=== PATIENT | female | born 1980 | race Caucasian/White ===

== ENCOUNTER 2017-03-13 00:16 | Day surgery (SDC) | payer SELFPAY ==
[2017-03-13] MEDS ORDERED: NORMAL SALINE 1000 ML 1,000 ML IV ONE ×2 (01:13)
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
[2017-03-13 01:38] LABS: PROTHROMBIN TIME 13.6 SEC (11.4-15.4)
[2017-03-13 01:39] LABS: PARTIAL THROMBOPLASTIN TIME 26.3 SEC (23.5-35.8)
[2017-03-13 01:40] LABS: ALANINE AMINOTRANSFERASE 41 U/L (9-52); ALBUMIN 4.3 g/dL (3.5-5.0); ALCOHOL 84 mg/dL (NONE DETECTED); ALKALINE PHOSPHATASE 80 U/L (38-126); ANION GAP 15 (5-19); ASPARTATE AMINO TRANSFERASE 34 U/L (14-36); BILIRUBIN,DIRECT 0.5 mg/dL (0.0-0.4); BILIRUBIN,TOTAL 0.7 mg/dL (0.2-1.3); BLOOD UREA NITROGEN 6 mg/dL (7-20); CALCIUM 9.5 mg/dL (8.4-10.2); CARBON DIOXIDE 23 mmol/L (22-30); CHLORIDE 102 mmol/L (98-107); CREATININE RESULT 0.56 mg/dL (0.52-1.25); GLUCOSE 124 mg/dL (75-110); POTASSIUM 4.5 mmol/L (3.6-5.0); SODIUM 140.3 mmol/L (137-145)
[2017-03-13 01:49] LABS: HEMATOCRIT 46.1 % (36.0-47.0); HEMOGLOBIN 15.7 g/dL (12.0-15.5); MEAN CORPUSCULAR HEMOGLOBIN 32.5 pg (27.0-33.4); MEAN CORPUSCULAR HGB CONC 34.1 g/dL (32.0-36.0); MEAN CORPUSCULAR VOLUME 95 fl (80-97); RED BLOOD COUNT 4.84 10^6/uL (3.72-5.28); RED CELL DISTRIBUTION WIDTH 13.5 % (11.5-14.0); WHITE BLOOD COUNT 20.3 10^3/uL (4.0-10.5)
[2017-03-13 01:52] LABS: BAND NEUTROPHILS % (MANUAL) 1 % (3-5); BASOPHILS % (MANUAL) 1 % (0-2); EOSINOPHILS % (MANUAL) 0 % (0-6); LYMPHOCYTES % (MANUAL) 8 % (13-45); TOTAL CELLS COUNTED 100
[2017-03-13 01:54] LABS: RBC MORPHOLOGY COMMENT NORMO-CYTIC/CHROMIC; TOXIC GRANULATION 1+; TOXIC VACUOLATION PRESENT
[2017-03-13] MEDS ORDERED: HYDROMORPHONE HCL INJ/PF 2 MG/ML AMPULE ONE (02:52)
[2017-03-13] MEDS ORDERED: PROPOFOL INJ 200 MG/20 ML VIAL IV ONE (02:53)
[2017-03-13] MEDS ORDERED: MIDAZOLAM 2 MG/2 ML INJ ONE (02:53)
[2017-03-13] MEDS ORDERED: FENTANYL CITRATE INJ/PF 100 MCG/2 ML AMPUL ONE (02:53)
[2017-03-13] MEDS ORDERED: ACETAMINOPHEN 100 ML IV ONE (02:53)
[2017-03-13] MEDS ORDERED: CEFAZOLIN INJ 1 GM VIAL ONE (03:10)
[2017-03-13] MEDS ORDERED: DIPHENHYDRAMINE HCL 50 MG/ML VIAL IV PRN (03:55)
[2017-03-13] MEDS ORDERED: PROMETHAZINE HCL INJ 25 MG/1 ML VIAL IV PRN (03:55)
[2017-03-13] MEDS ORDERED: FENTANYL CITRATE INJ/PF 100 MCG/2 ML AMPUL IV PRN ×3 (03:55)
[2017-03-13] MEDS ORDERED: OXYCODONE-ACETAMINOPHEN 5-325 MG TABLET PO PRN ×2 (03:55)
[2017-03-13 05:41] VITALS: BP 118/59
[2017-03-13] MEDS ORDERED: MORPHINE SULFATE 10 MG/ML INJ IV PRN (06:31)
[2017-03-13] MEDS ORDERED: ONDANSETRON HCL INJ/PF 4 MG/2 ML SDV IV PRN (06:32)
--- NOTE | 2017-03-13 08:28 | EKG REPORT ---
SEVERITY:- NORMAL ECG - SINUS RHYTHM : Confirmed by: Franklin Adam MD 13-Mar-2017 08:27:28
[2017-03-13] MEDS ORDERED: DEXAMETHASONE SOD PHOSPHATE INJ 4 MG/1 ML VIAL ONE (10:42)
[2017-03-13] MEDS ORDERED: LIDOCAINE 2% INJ-PF (20 MG/ML) 10 ML AMPUL ONE (10:42)
[2017-03-13] MEDS ORDERED: ONDANSETRON HCL INJ/PF 4 MG/2 ML SDV ONE (10:42)
[2017-03-13] MEDS ORDERED: SUCCINYLCHOLINE CHLORIDE INJ 200 MG/10 ML VIAL ONE (10:42)
--- NOTE | 2017-04-20 10:33 | OPERATIVE REPORT E ---
Operative Report NAME: FELISHA BURK : 1980 AGE: 36Y DATE OF SURGERY: ROOM: 212 PREOPERATIVE DIAGNOSIS: Vaginal laceration. POSTOPERATIVE DIAGNOSIS: Vaginal laceration. OPERATION: 1. Exam under anesthesia. 2. Repair of vaginal laceration. SURGEON: Kevin Ko D.O. COSMETICS DEMONSTRATOR: None. ANESTHESIA: General endotracheal anesthesia. COMPLICATIONS: None. PATHOLOGY: None. ESTIMATED BLOOD LOSS: 50 mL. FINDINGS: Left vaginal sidewall laceration extending approximately 4 cm into the vaginal vault to a depth of approximately 2 cm. PROCEDURE: The patient was taken to the operating room where she was placed in the dorsal supine position upon the operating room table. She was then administered her general endotracheal anesthesia. Once this was completed, she was placed in the dorsal lithotomy position with Doe stirrups. She was then prepped and draped in the normal sterile fashion. An exam under anesthesia was performed which revealed the left vaginal sidewall laceration that extended approximately 4 cm in the vaginal vault with a depth of approximately 2 cm. This was repaired with multiple sutures of 1-0 Vicryl. Following this the laceration was repaired, and there was excellent hemostasis noted. At this point in time the procedure was terminated. All sponge, lap, and needle counts were correct x2. The patient tolerated the procedure well. The patient was taken to the recovery room in stable condition. DICTATING PHYSICIAN: Kevin Ko DO [id number] PHY#: [id number] ID: [id number] JOB#: [id number] ACCT: [id number] cc:Kevin Ko D.O. >
== END 2017-03-13 06:15 | disposition home or self-care (01) ==
LOC: ER 00:16 → OROUT 00:17 → 2S 02:40 → ER 02:40 → 2S 02:46 → 2N 04:53 → 2S 04:53 → 2N 04:53 → OROUT 06:15 → ER 06:15
PROVIDERS: ATTEND Obstetrics & Gynecology
PROC: 0UQGXZZ Repair Vagina, External Approach (ICD-10-PCS; principal; 2017-03-13 03:30)
DX: S31.41XA Laceration without foreign body of vagina and vulva, initial encounter (principal); I95.9 Hypotension, unspecified; F17.200 Nicotine dependence, unspecified, uncomplicated; X58.XXXA Exposure to other specified factors, initial encounter; Y92.009 Unspecified place in unspecified non-institutional (private) residence as the place of occurrence of the external cause
CPT/HCPCS: 93005; 99291; 96360; 86900; 86901; 36415; 86850; 80307; 84703; 85025; 85610; 85730; 80053; 93010; 57210; J0690; J1100; J3010; J1170; J0330; J2405; J7030; J2704; J3490; J0131; 940; J2250

== ENCOUNTER 2017-05-29 16:22 | Emergency (ER) | payer SELFPAY ==
[2017-05-29] MEDS ORDERED: ACETAMINOPHEN 325 MG TABLET PO ONE (16:31)
[2017-05-29] MEDS ORDERED: OXYCODONE HCL IR 5 MG TABLET PO ONE (16:55)
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
--- NOTE | 2017-05-29 18:38 | RADIOLOGY REPORT (SQ) ---
EXAM DESCRIPTION: WRIST RIGHT 3 VIEWS COMPLETED DATE/TIME: 05/29/2017 5:32 pm REASON FOR STUDY: fall, swelling and pain over 5th metacarpal COMPARISON: None. NUMBER OF VIEWS: Three views. TECHNIQUE: AP, lateral, and oblique radiographic images acquired of the right wrist. LIMITATIONS: None. FINDINGS: MINERALIZATION: Normal. BONES: No acute fracture or dislocation. No worrisome bone lesions. Normal alignment. SOFT TISSUES: No soft tissue swelling. No foreign body. OTHER: No other significant finding. IMPRESSION: NEGATIVE STUDY OF THE RIGHT WRIST. NO RADIOGRAPHIC EVIDENCE OF ACUTE INJURY. TECHNICAL DOCUMENTATION: JOB ID: [id number] [employer]- All Rights Reserved
--- NOTE | 2017-05-29 18:38 | RADIOLOGY REPORT (SQ) ---
EXAM DESCRIPTION: ELBOW BILATERAL 2 VIEWS MIN COMPLETED DATE/TIME: 05/29/2017 5:32 pm REASON FOR STUDY: fall, swelling and pain. R with radial head tender COMPARISON: None. NUMBER OF VIEWS: Four views. TECHNIQUE: AP, lateral, and both oblique radiographic images acquired of the right elbow. LIMITATIONS: None. FINDINGS: MINERALIZATION: Normal. BONES: No acute fracture or dislocation. No worrisome bone lesions. JOINT: No effusion. SOFT TISSUES: No soft tissue swelling. No foreign body. OTHER: No other significant finding. IMPRESSION: NEGATIVE STUDY OF THE RIGHT ELBOW. NO RADIOGRAPHIC EVIDENCE OF ACUTE INJURY. TECHNICAL DOCUMENTATION: JOB ID: [id number] [employer]- All Rights Reserved
--- NOTE | 2017-05-29 18:40 | RADIOLOGY REPORT (SQ) ---
EXAM DESCRIPTION: HAND RIGHT 3 VIEWS COMPLETED DATE/TIME: 05/29/2017 5:32 pm REASON FOR STUDY: fall, swelling and pain over 5th metacarpal COMPARISON: None. EXAM PARAMETERS: NUMBER OF VIEWS: Three views. TECHNIQUE: AP, lateral and oblique radiographic images acquired of the right hand. LIMITATIONS: None. FINDINGS: MINERALIZATION: Normal. BONES: Moderately displaced oblique fracture through the 5th metacarpal distal diaphysis. JOINTS: No effusions. SOFT TISSUES: Soft tissue swelling overlies the injury. OTHER: No other significant finding. IMPRESSION: Moderately displaced oblique fracture through the 5th metacarpal distal diaphysis. TECHNICAL DOCUMENTATION: JOB ID: [id number] [employer]- All Rights Reserved
--- NOTE | 2017-05-29 18:41 | RADIOLOGY REPORT (SQ) ---
EXAM DESCRIPTION: ANKLE RIGHT COMPLETE COMPLETED DATE/TIME: 05/29/2017 5:32 pm REASON FOR STUDY: fall, pain lateral COMPARISON: None. NUMBER OF VIEWS: Three views. TECHNIQUE: AP, lateral, and oblique radiographic images acquired of the right ankle. LIMITATIONS: None. FINDINGS: MINERALIZATION: Normal. BONES: No acute fracture or dislocation. No worrisome bone lesions. JOINTS: No effusions. SOFT TISSUES: No soft tissue swelling. No foreign body. OTHER: No other significant finding. IMPRESSION: NEGATIVE STUDY OF THE RIGHT ANKLE. NO RADIOGRAPHIC EVIDENCE OF ACUTE INJURY. TECHNICAL DOCUMENTATION: JOB ID: [id number] [employer]- All Rights Reserved
--- NOTE | 2017-05-29 18:42 | RADIOLOGY REPORT (SQ) ---
EXAM DESCRIPTION: FOOT RIGHT COMPLETE COMPLETED DATE/TIME: 05/29/2017 5:32 pm REASON FOR STUDY: fall, pain lateral COMPARISON: None. NUMBER OF VIEWS: Three views. TECHNIQUE: AP, lateral and oblique radiographic images acquired of the right foot. LIMITATIONS: None. FINDINGS: MINERALIZATION: Normal. BONES: There is a transverse fracture of the 2nd digit proximal phalanx distal metaphysis demonstrati ng callus formation and periosteal reaction. No additional fractures are identified. JOINTS: No effusions. SOFT TISSUES: 2nd digit swelling. OTHER: No other significant finding. IMPRESSION: Subacute transverse fracture of the 2nd digit proximal phalanx. TECHNICAL DOCUMENTATION: JOB ID: [id number] [employer]- All Rights Reserved
[2017-05-29 19:07] VITALS: BP 123/72
== END 2017-05-29 19:07 | disposition home or self-care (01) ==
LOC: ER 16:22
DX: S62.339A Displaced fracture of neck of unspecified metacarpal bone, initial encounter for closed fracture (principal); W17.89XA Other fall from one level to another, initial encounter; Y92.009 Unspecified place in unspecified non-institutional (private) residence as the place of occurrence of the external cause; F17.200 Nicotine dependence, unspecified, uncomplicated; Z98.51 Tubal ligation status
CPT/HCPCS: 99283

== ENCOUNTER 2017-12-28 10:36 | Emergency (ER) | payer SELFPAY ==
[2017-12-28 10:44] VITALS: BP 121/48
--- NOTE | 2017-12-28 11:25 | ER Document Report ---
ED General - General Chief Complaint: Allergic Reaction Stated Complaint: POSSIBLE ALLERGIC REACTION Time Seen by Provider: 12/28/17 11:11 Mode of Arrival: Ambulatory Information source: Patient Notes: 37 female presents with complaints of allergic reaction to hair dye that was placed in here 2 days ago. Patient was initially started itching and then she noted rash and eyelid edema and redness of her ears. TRAVEL OUTSIDE OF THE [place] IN LAST 30 DAYS: No - HPI Onset: Other - 2 day duration Onset/Duration: Persistent Quality of pain: No pain Severity: Mild Pain Level: 1 Associated symptoms: Other Exacerbated by: Other - dye Relieved by: Denies Similar symptoms previously: Yes - 10 years ago Recently seen / treated by doctor: No - Related Data Allergies/Adverse Reactions: No Known Allergies Allergy (Verified 12/28/17 10:38) Past Medical History - Social History Smoking Status: Current Every Day Smoker Cigarette use (# per day): Yes Chew tobacco use (# tins/day): No Smoking Education Provided: No Frequency of alcohol use: Occasional Drug Abuse: None Family History: Reviewed & Not Pertinent Patient has suicidal ideation: No Patient has homicidal ideation: No Renal/ Medical History: Denies: Hx Peritoneal Dialysis Past Surgical History: Reports: Hx Breast Surgery - implants, Hx Oral Surgery, Hx Tubal Ligation - Immunizations Hx Diphtheria, Pertussis, Tetanus Vaccination: Yes Review of Systems - Review of Systems Notes: REVIEW OF SYSTEMS: CONSTITUTIONAL : Denies fever, chills, or sweats. Denies recent illness. EENT: right upper eye lid swelling CARDIOVASCULAR: Denies chest pain. Denies palpitations or racing or irregular heart beat. Denies ankle edema. RESPIRATORY: Denies cough, cold, or chest congestion. Denies shortness of breath, difficulty breathing, or wheezing. GASTROINTESTINAL: Denies abdominal pain or distention. Denies nausea, vomiting , or diarrhea. Denies blood in vomitus, stools, or per rectum. Denies black, tarry stools. Denies constipation. GENITOURINARY: Denies difficulty urinating, painful urination, burning, frequency, blood in urine, or discharge. FEMALE GENITOURINARY: Denies vaginal bleeding, heavy or abnormal periods, irregular periods. Denies vaginal discharge or odor. MUSCULOSKELETAL: Denies back or neck pain or stiffness. Denies joint pain or swelling. SKIN: itching, swelling HEMATOLOGIC : Denies easy bruising or bleeding. LYMPHATIC: Denies swollen, enlarged glands. NEUROLOGICAL: Denies confusion or altered mental status. Denies passing out or loss of consciousness. Denies dizziness or lightheadedness. Denies headache. Denies weakness or paralysis or loss of use of either side. Denies problems with gait or speech. Denies sensory loss, numbness, or tingling. Denies seizures. PSYCHIATRIC: Denies anxiety or stress. Denies depression, suicidal ideation, or homicidal ideation. ALL OTHER SYSTEMS REVIEWED AND NEGATIVE. PHYSICAL EXAMINATION: GENERAL: Well-appearing, well-nourished and in no acute distress. HEAD: Atraumatic, normocephalic. EYES: upper eye lid edema ENT: Nares patent, oropharynx clear without exudates. Moist mucous membranes. NECK: Normal range of motion, supple without lymphadenopathy LUNGS: Breath sounds clear to auscultation bilaterally and equal. No wheezes rales or rhonchi. HEART: Regular rate and rhythm without murmurs ABDOMEN: Soft, nontender, nondistended abdomen. No guarding, no rebound. No masses appreciated. Female : deferred Musculoskeletal: Normal range of motion, no pitting or edema. No cyanosis. NEUROLOGICAL: Cranial nerves grossly intact. Normal speech, normal gait. Normal sensory, motor exams PSYCH: Normal mood, normal affect. SKIN: rash red on head Dictation was performed using [employer] voice recognition software Physical Exam - Vital signs Vitals: Temp Pulse Resp BP Pulse Ox 98.7 F 95 18 121/48 L 98 12/28/17 10:40 12/28/17 10:40 12/28/17 10:40 12/28/17 10:40 12/28/17 10:40 Course - Re-evaluation Re-evalutation: 12/28/17 11:25 Patient is obvious allergic reaction, I expect further swelling, patient has been encouraged to wash her hair which she states she has done a few times now, she will be treated with Benadryl prednisone and Pepcid, there is no airway involvement she otherwise is stable After performing a Medical Screening Examination, I estimate there is LOW risk for AIRWAY COMPROMISE, ANAPHYLAXIS, CELLULITIS, EPIGLOTTIS, or NECROTIZING FASCIITIS, thus I consider the discharge disposition reasonable. Also, there is no evidence or peritonitis, sepsis, or toxicity. I have reevaluated this patient multiple times and no significant life threatening changes are noted. The patient and I have discussed the diagnosis and risks, and we agree with discharging home with close follow-up with the understanding that symptoms and presentations can change. We also discussed returning to the Emergency Department immediately if new or worsening symptoms occur. We have discussed the symptoms which are most concerning (e.g., difficulty breathing or swallowing , fever, changing or worsening pain) that necessitate immediate return. - Vital Signs Vital signs: Temp Pulse Resp BP Pulse Ox 98.7 F 95 18 121/48 L 98 12/28/17 10:40 12/28/17 10:40 12/28/17 10:40 12/28/17 10:40 12/28/17 10:40 Discharge - Discharge Clinical Impression: Allergic reaction, Facial edema Condition: Stable Disposition: HOME, SELF-CARE Instructions: Contact Dermatitis ([facility]), Acute Allergic Reaction ([facility]) Additional Instructions: Follow up with your physician tomorrow for further care or return to the ED IMMEDIATELY if symptoms worsen or new concerns occur. If you cannot afford to follow up with your primary care physician a list of low cost clinics have been provided at the end of your discharge papers as well. Prescriptions: Famotidine [Pepcid 20 mg Tablet] 20 mg PO DAILY #5 tablet Prednisone [Deltasone 20 mg Tablet] 3 tab PO DAILY 5 Days tablet
== END 2017-12-28 11:28 | disposition home or self-care (01) ==
LOC: ER 10:36
DX: L23.4 Allergic contact dermatitis due to dyes (principal); T49.4X5A Adverse effect of keratolytics, keratoplastics, and other hair treatment drugs and preparations, initial encounter
CPT/HCPCS: 99283

== ENCOUNTER 2019-11-19 13:48 | Emergency (ER) | payer BC ==
[2019-11-19 13:53] VITALS: BP 150/82
--- NOTE | 2019-11-19 14:36 | ER Document Report ---
HPI - HPI Patient complains to provider of: Head injury Time Seen by Provider: 11/19/19 14:27 Onset: Other - Wednesday Quality of pain: Achy Pain Level: 5 Context: 39-year-old female presents emergency department with reports of head injury. Reports she was carrying laundry and she slipped and fell hitting the back of her head. She reports she was knocked out. When she woke up she could not see. She reports her vision is blurry now and she just does not feel right. Denies fever vomiting diarrhea. Patient is alert and oriented answering all questions appropriately. Respiratory rate even unlabored. 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 IN LAST 30 DAYS: No - HEENT HEENT: Atraumatic, Normal ENT Exam, Normocephalic, PERRLA. negative: Conjuctival Injection, Pharyngeal Erythema, Tympanic Membrane Bulging - NECK Neck: Normal Inspection, Supple - RESPIRATORY Respiratory: Breath Sounds Normal, No Respiratory Distress - CARDIOVASCULAR Cardiovascular: Regular Rate, Regular Rhythm - GI/ABDOMEN Gastrointestinal: Abdomen Non-Tender - MUSCULOSKELETAL/EXTREMETIES Musculoskeletal/Extremeties: SNEHA ABDALLA - NEURO Level of Consciousness: Awake, Alert, Appropriate Motor/Sensory: No Motor Deficit - DERM Integumentary: Warm, Dry Course - Re-evaluation Re-evalutation: 11/19/19 14:35 Patient presents emergency department with complaints of headache not feeling quite right since she fell and hit her head on Wednesday. She reports she was knocked out and when she woke up she could not see for second. Denies vomiting diarrhea. Patient is answering all questions appropriately. No obvious neuro deficits. - Vital Signs Vital signs: Temp Pulse Resp BP Pulse Ox 98.4 F 89 18 150/82 H 99 11/19/19 13:52 11/19/19 13:52 11/19/19 13:52 11/19/19 13:52 11/19/19 13:52 Discharge - Discharge Clinical Impression: Head injury, Post-concussion syndrome Condition: Stable Disposition: HOME, SELF-CARE Instructions: Post-Concussion Syndrome ([facility]) Additional Instructions: *You have been evaluated for head injury, post concussion syndrome *Follow up with a primary care provider within 1 week for recheck *Return to ED for worsening condition, changes, needs, concerns Monitor your blood pressure. Your blood pressure was elevated today. This may be because you were anxious, in pain or because you need medication. It is important to follow up with your primary care provider for full evaluation. Forms: Elevated Blood Pressure
--- NOTE | 2019-11-19 15:16 | ER Document Report ---
ED Medical Screen (RME) - General Chief Complaint: Closed Head Injury Stated Complaint: FALL Time Seen by Provider: 11/19/19 14:27 Mode of Arrival: Ambulatory Information source: Patient Notes: 39-year-old female presents emergency department with reports of head injury on Wednesday. Reports she was carrying laundry and she slipped and fell hitting the back of her head. She reports she was knocked out. When she woke up she could not see. She reports her vision is blurry now and she just does not feel right. Denies fever vomiting diarrhea. Patient is alert and oriented answering all questions appropriately. Respiratory rate even unlabored. I have greeted and performed a rapid initial assessment of this patient. A comprehensive ED assessment and evaluation of the patient, analysis of test results and completion of the medical decision making process will be conducted by additional ED providers. TRAVEL OUTSIDE OF THE [place] IN LAST 30 DAYS: No - Related Data Allergies/Adverse Reactions: No Known Allergies Allergy (Verified 11/19/19 14:16) Past Medical History - Social History Chew tobacco use (# tins/day): No Frequency of alcohol use: Occasional Drug Abuse: Marijuana Renal/ Medical History: Denies: Hx Peritoneal Dialysis Past Surgical History: Reports: Hx Breast Surgery - implants, Hx Oral Surgery, Hx Tubal Ligation - Immunizations Hx Diphtheria, Pertussis, Tetanus Vaccination: Yes Physical Exam - Vital signs Vitals: Temp Pulse Resp BP Pulse Ox 98.4 F 89 18 150/82 H 99 11/19/19 13:52 11/19/19 13:52 11/19/19 13:52 11/19/19 13:52 11/19/19 13:52 Course - Vital Signs Vital signs: Temp Pulse Resp BP Pulse Ox 98.4 F 89 18 150/82 H 99 11/19/19 13:52 11/19/19 13:52 11/19/19 13:52 11/19/19 13:52 11/19/19 13:52 Doctor's Discharge - Discharge Clinical Impression: Head injury, Post-concussion syndrome Condition: Stable Disposition: HOME, SELF-CARE Instructions: Post-Concussion Syndrome ([facility]) Additional Instructions: *You have been evaluated for head injury, post concussion syndrome *Follow up with a primary care provider within 1 week for recheck *Return to ED for worsening condition, changes, needs, concerns Monitor your blood pressure. Your blood pressure was elevated today. This may be because you were anxious, in pain or because you need medication. It is important to follow up with your primary care provider for full evaluation. Forms: Elevated Blood Pressure
--- NOTE | 2019-11-19 15:31 | RADIOLOGY REPORT (SQ) ---
EXAM DESCRIPTION: CT HEAD WITHOUT COMPLETED DATE/TIME: 11/19/2019 3:20 pm REASON FOR STUDY: head injury change in LOC COMPARISON: None. TECHNIQUE: Axial images acquired through the brain without intravenous contrast. Images reviewed wi th bone, brain and subdural windows. Additional sagittal and coronal reconstructions were generated. Images stored on PACS. All CT scanners at this facility use dose modulation, iterative reconstruction, and/or weight based d osing when appropriate to reduce radiation dose to as low as reasonably achievable (ALARA). [facility]: Dose Right [facility]: CareDose [facility]: Dose Right [facility]: Teradose 4D [facility]: Smart EnWave RADIATION DOSE: CT Rad equipment meets quality standard of care and radiation dose reduction techniq ues were employed. CTDIvol: 53.2 mGy. DLP: 1044 mGy-cm. mGy. LIMITATIONS: None. FINDINGS: VENTRICLES: Normal size and contour. CEREBRUM: No masses. No hemorrhage. No midline shift. No evidence for acute infarction. Normal gra y/white matter differentiation. No areas of low density in the white matter. CEREBELLUM: No masses. No hemorrhage. No alteration of density. No evidence for acute infarction. EXTRAAXIAL SPACES: No fluid collections. No masses. ORBITS AND GLOBE: No intra- or extraconal masses. Normal contour of globe without masses. CALVARIUM: No fracture. PARANASAL SINUSES: No fluid or mucosal thickening. SOFT TISSUES: No mass or hematoma. OTHER: No other significant finding. IMPRESSION: NORMAL BRAIN CT WITHOUT CONTRAST. EVIDENCE OF ACUTE STROKE: NO. COMMENT: Quality ID # [id number]: Final reports with documentation of one or more dose reduction techniques (e.g., Automated exposure control, adjustment of the mA and/or kV according to patient size, use of iterative reconstruction technique) TECHNICAL DOCUMENTATION: JOB ID: [id number] [employer]- All Rights Reserved Reading location - IP/workstation name: [email or web address]
--- NOTE | 2019-11-19 15:32 | RADIOLOGY REPORT (SQ) ---
EXAM DESCRIPTION: CT CERVICAL SPINE WITHOUT COMPLETED DATE/TIME: 11/19/2019 3:20 pm REASON FOR STUDY: fall COMPARISON: None. TECHNIQUE: Axial images acquired through the cervical spine without intravenous contrast. Images re viewed with lung, soft tissue and bone windows. Reconstructed coronal and sagittal MPR images review ed. Images stored on PACS. All CT scanners at this facility use dose modulation, iterative reconstruction, and/or weight based d osing when appropriate to reduce radiation dose to as low as reasonably achievable (ALARA). [facility]: Dose Right [facility]: CareDose [facility]: Dose Right [facility]: Teradose 4D [facility]: Smart [employer] RADIATION DOSE: CT Rad equipment meets quality standard of care and radiation dose reduction techniq ues were employed. CTDIvol: 15.1 mGy. DLP: 290 mGy-cm. mGy. LIMITATIONS: None. FINDINGS: ALIGNMENT: Anatomic. MINERALIZATION: Normal. VERTEBRAL BODIES: No fractures or dislocation. DISCS: No significant disc disease. FACETS, LATERAL MASSES, POSTERIOR ELEMENTS: No fractures. No dislocation. No acute findings. HARDWARE: None in the spine. VISUALIZED RIBS: No fractures. LUNG APICES AND SOFT TISSUES: No significant or acute findings. OTHER: No other significant finding. IMPRESSION: NO ACUTE OR SIGNIFICANT FINDINGS IN THE CERVICAL SPINE. TECHNICAL DOCUMENTATION: JOB ID: [id number] Quality ID # [id number]: Final reports with documentation of one or more dose reduction techniques (e.g., Au tomated exposure control, adjustment of the mA and/or kV according to patient size, use of iterative reconstruction technique) 2010 [employer]- All Rights Reserved Reading location - IP/workstation name: [email or web address]
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
[2019-11-19] MEDS ORDERED: MECLIZINE HCL 25 MG TABLET PO ONE (15:51)
[2019-11-19] MEDS ORDERED: OXYCODONE-ACETAMINOPHEN 5-325 MG TABLET PO ONE (15:51)
--- NOTE | 2019-11-19 16:30 | RADIOLOGY REPORT (SQ) ---
EXAM DESCRIPTION: L SPINE 2 VIEWS COMPLETED DATE/TIME: 11/19/2019 4:22 pm REASON FOR STUDY: fall COMPARISON: None. NUMBER OF VIEWS: Two views. TECHNIQUE: AP and lateral radiographic images acquired of the lumbar spine. LIMITATIONS: None. FINDINGS: MINERALIZATION: Normal. SEGMENTATION: Normal. No transitional anatomy. ALIGNMENT: Normal. VERTEBRAE: Maintained height. No fracture or worrisome bone lesion. DISCS: Preserved height. No significant osteophytes or end plate irregularity. POSTERIOR ELEMENTS: Pedicles and facets are intact. No pars defect or posterior arch defects. HARDWARE: None in the spine. PARASPINAL SOFT TISSUES: Normal. PELVIS: Intact as visualized. No fractures or worrisome bone lesions. SI joints intact. OTHER: No other significant finding. IMPRESSION: NORMAL 2 VIEW LUMBAR SPINE. TECHNICAL DOCUMENTATION: JOB ID: [id number] [employer]- All Rights Reserved Reading location - IP/workstation name: [email or web address]
--- NOTE | 2019-11-19 16:30 | RADIOLOGY REPORT (SQ) ---
EXAM DESCRIPTION: SKULL ROUTINE 4 VIEWS COMPLETED DATE/TIME: 11/19/2019 4:22 pm REASON FOR STUDY: eval for skull fracture COMPARISON: CT same date NUMBER OF VIEWS: 4 TECHNIQUE: PA, Radha's, right and left lateral views. LIMITATIONS: None. FINDINGS: SKULL: Nondisplaced linear fracture right occiput extending into the rhomboid suture. OTHER: No other significant finding. IMPRESSION: Nondisplaced occipital fracture. TECHNICAL DOCUMENTATION: JOB ID: [id number] [employer]- All Rights Reserved Reading location - IP/workstation name: [email or web address]
--- NOTE | 2019-11-20 00:26 | EKG REPORT ---
SEVERITY:- NORMAL ECG - SINUS RHYTHM : Confirmed by: Jeremias Garza 20-Nov-2019 00:26:06
== END 2019-11-19 19:20 | disposition left against medical advice (07) ==
LOC: ER 13:48
DX: S09.90XA Unspecified injury of head, initial encounter (principal); F07.81 Postconcussional syndrome; W01.10XA Fall on same level from slipping, tripping and stumbling with subsequent striking against unspecified object, initial encounter; Z98.51 Tubal ligation status
CPT/HCPCS: 70260; 70450; 72100; 72125; 93005; 93010; 99284